=== PATIENT | female | born 1960 | race Caucasian/White ===

== ENCOUNTER → 2016-07-24 | Outpatient (CLI) | payer OTHER ==
[~2016-07-24] MED LIST: CIPR-255 PO; POTATAB PO
--- NOTE | 2016-07-24 11:20 | DIAGNOSTIC IMAGING REPORT ---
KUB HISTORY: R80.9 [id number] Urge incontinence of urine COMPARISON: KUB 12/28/2015. FINDINGS: The bowel gas pattern is unremarkable. There are no dilated loops of small bowel to suggest an obstruction. Stable round calcifications within the deep pelvis suggestive of phleboliths. No definite ureteral calculi. There are few punctate bilateral renal calculi. Prior cholecystectomy. No pneumoperitoneum or pneumatosis. IMPRESSION: Punctate bilateral renal calculi. No ureteral calculi. Electronically signed by: Darren Razo M.D. 07/24/2016 11:19 AM Dictated Date/Time: 07/24/2016 11:18 AM
== END | disposition home or self-care (01) ==
LOC: C.RAD 10:54
PROVIDERS: ATTEND Urology
DX: N39.41 Urge incontinence (principal); R80.9 Proteinuria, unspecified; N20.0 Calculus of kidney

== ENCOUNTER → 2017-08-15 | Outpatient (CLI) | payer OTHER ==
--- NOTE | 2017-08-15 10:13 | DIAGNOSTIC IMAGING REPORT ---
KUB CLINICAL HISTORY: 57 years-old Female presenting with N20.0 [id number]. TECHNIQUE: Single supine view of the abdomen was obtained. COMPARISON: 07/24/2016. FINDINGS: Cholecystectomy clips noted. Nonobstructive bowel gas pattern. No gross pneumoperitoneum. Moderate stool burden in the right colon partially obscures the right kidney. Allowing for this, bilateral punctate renal calculi evident. No convincing evidence of ureteral calculi. Stable distribution of pelvic phleboliths. Osseous structures normal. Lung bases clear. IMPRESSION: 1. Bilateral nephrolithiasis unchanged from prior. No ureteral calculi radiographically apparent. 2. Moderate stool burden in the right colon somewhat degrades evaluation. Electronically signed by: Uli Esparza M.D. 08/15/2017 10:12 AM Dictated Date/Time: 08/15/2017 10:10 AM
== END | disposition home or self-care (01) ==
LOC: C.RAD 09:52
PROVIDERS: ATTEND Urology
DX: N20.0 Calculus of kidney (principal)

== ENCOUNTER → 2017-09-20 | Outpatient (CLI) | payer OTHER | END | disposition home or self-care (01) | LOC: C.LABPBG 14:24 | PROVIDERS: ATTEND Nurse Practitioner Family | DX: N39.0 Urinary tract infection, site not specified (principal) ==

== ENCOUNTER → 2017-12-12 | Outpatient (CLI) | payer OTHER | END | disposition home or self-care (01) | LOC: C.LABSPEC 17:02 | PROVIDERS: ATTEND Nurse Practitioner Adult Health | DX: R31.29 Other microscopic hematuria (principal) ==